=== PATIENT | male | born 1975 | race African-American/Black ===

== ENCOUNTER 2018-01-27 12:20 | Emergency (ER) | payer OTHER ==
[~2018-01-27] VITALS: Ht 170.2 cm; Wt 68.5 kg
[2018-01-27 12:33] VITALS: BP 130/86
[2018-01-27] MEDS ORDERED: NKM (12:36)
--- NOTE | 2018-01-27 13:02 | Emergency Room Report ---
History of Present Illness General Chief Complaint: Male Urogenital Problems Source: Patient Present Illness HPI patient is a 42-year-old male with no significant past medical history here complaining of few days of clear penile discharge after sexual encounter. She was not wearing condoms. Eyes dysuria, penile edema, scrotal pain, penile pain. Patient is unsure if his partner is positive for any other sexually transmitted diseases. Denies ulceration. Denies fevers/chills and all other associated symptoms. Patient is sexually active with one female partner.denies flank pain, suprapubic pain, nausea vomiting Allergies: Coded Allergies: No Known Allergies (Unverified , 01/27/18) Patient History Past Medical History: see triage record Past Surgical History: none Reviewed Nursing Documentation: PMH: Agreed; PSxH: Agreed Review of Systems All Other Systems: negative except mentioned in HPI Physical Exam Vital Signs Date Time Temp Pulse Resp B/P (MAP) Pulse Ox O2 Delivery O2 Flow Rate FiO2 01/27/18 12:33 97.9 72 16 130/86 97 Room Air 97.9 Sp02 EP Interpretation: reviewed, normal General Appearance: normal inspection, well appearing, no apparent distress Head: normocephalic Eyes: bilateral eye normal inspection, bilateral eye PERRL ENT: normal ENT inspection, hearing grossly normal Neck: normal inspection, full range of motion, supple Respiratory: normal inspection, no rhonchi, no wheezing Cardiovascular #1: normal inspection, no edema, no murmur Gastrointestinal: normal inspection, soft Rectal: deferred Genitourinary: deferred Musculoskeletal: normal inspection, back normal Neurologic: normal inspection, alert, oriented x3 Psychiatric: normal inspection, judgement/insight normal, memory normal Skin: normal inspection, normal color, no rash Lymphatic: normal inspection, no adenopathy Medical Decision Making PA Attestation all diagnosis and treatment plans are reviewed and discussed with my supervising physician Diagnostic Impression: Primary Impression: Penile discharge, without blood Additional Impression: Screen for STD (sexually transmitted disease) ER Course patient is a 42-year-old male with no significant past medical history here complaining of few days of clear penile discharge after sexual encounter. She was not wearing condoms. Eyes dysuria, penile edema, scrotal pain, penile pain. Patient is unsure if his partner is positive for any other sexually transmitted diseases. Denies ulceration. Denies fevers/chills and all other associated symptoms. Patient is sexually active with one female partner.denies flank pain, suprapubic pain, nausea vomiting Ddx considered but are not limited to penile discharge due to Chlamydia or gonorrhea, UTI Vital signs: are WNL, pt. is afebrile H&PE are most consistent with penile discharge due to Chlamydia gonorrhea ORDERS: Rocephin 250 mg IM, azithromycin 1 g by mouth, ED INTERVENTIONS: None required at this time. DISCHARGE: At this time pt. is stable for d/c to home. Will provide printed patient care instructions, and any necessary prescriptions. Care plan and follow up instructions have been discussed with the patient prior to discharge.follow-up with primary care provider for screening for sexually transmitted diseases. Social encounter with condoms only for the next 7-10 days. Partner treated and tested. Repeat test in 4-6 weeks Last Vital Signs Date Time Temp Pulse Resp B/P (MAP) Pulse Ox O2 Delivery O2 Flow Rate FiO2 01/27/18 12:33 16 130/86 97 Room Air 01/27/18 12:33 97.9 72 97.9 Disposition: HOME, SELF-CARE Condition: Stable Scripts Azithromycin (AZITHROMYCIN) 1 Gm Packet 1 GM ORAL DAILY for 1 Day, #1 PACKET Prov: Edward Quinones 01/27/18 Patient Instructions: Epididymitis, Urethritis, Adult Additional Instructions: and follow-up with sexually transmitted diseases clinic for extensive workup. Take medication as directed, have partner be tested and treated with proper medication. Encounter without condoms for 7-10 days. Repeat test 4-6 weeks. Edward Quinones Jan 27, 2018 13:02
[2018-01-27] MEDS ORDERED: AZITHROMYCIN1 GM ORAL (13:07)
[2018-01-27] MEDS ORDERED: Lidocaine 1% MPF 10mg/ml 5ml ONE (13:12)
[2018-01-27 13:19] VITALS: BP 130/86
== END 2018-01-27 13:19 | disposition home or self-care (01) ==
LOC: EMR 12:51
DX: Z11.3 Encounter for screening for infections with a predominantly sexual mode of transmission (principal); R36.9 Urethral discharge, unspecified
CPT/HCPCS: 96372; 99283; J0696

== ENCOUNTER 2018-03-30 20:12 | Emergency (ER) | payer OTHER ==
[~2018-03-30] VITALS: Ht 172.7 cm; Wt 72.6 kg
[~2018-03-30 20:12] MED LIST: AZITHROMYCIN1 GM ORAL; NKM
[2018-03-30 20:22] VITALS: BP 138/86
[2018-03-30] MEDS ORDERED: FLAGYL500 MG ORAL (20:48)
--- NOTE | 2018-03-30 20:57 | Emergency Room Report ---
History of Present Illness General Chief Complaint: General Complaint Source: Patient Present Illness HPI Patient 43-year-old male presented after a reported STI exposure. The patient stated he had intercourse with a woman who was diagnosed with Trichomonas. He reports having increased. Patient denied discharge. He denies any fever. He denied having any ulcers or testicle swelling. He had not been vomiting. Allergies: Coded Allergies: No Known Allergies (Unverified , 01/27/18) Patient History Past Medical History: see triage record Reviewed Nursing Documentation: PMH: Agreed; PSxH: Agreed Nursing Documentation-PMH Past Medical History: No Stated History Review of Systems All Other Systems: negative except mentioned in HPI Physical Exam Vital Signs Date Time Temp Pulse Resp B/P (MAP) Pulse Ox O2 Delivery O2 Flow Rate FiO2 03/30/18 20:15 97.9 78 20 138/86 98 Room Air General Appearance: well appearing, no apparent distress, alert, GCS 15 Head: normocephalic, atraumatic ENT: hearing grossly normal, normal voice Neck: full range of motion, supple Respiratory: no respiratory distress, speaking full sentences Gastrointestinal: normal inspection Genitourinary: deferred Musculoskeletal: normal inspection, back normal, no calf tenderness Neurologic: normal inspection, alert, oriented x3, normal gait Psychiatric: mood/affect normal Skin: no rash Medical Decision Making Diagnostic Impression: Primary Impression: Exposure to STD ER Course Patient presented for increased urethral discharge as well as exposure to STI. The patient be empirically treated for a urethritis. Patient was advised to have outpatient STD testing. Patient is advised not to drink alcohol taking antibiotics.The patient is advised to follow up with primary care doctor in 1- 2 days. Patient is advised to return if any worsening condition or if any changes in status that are concerning. This report is dictated with [employer] intern software which may occasionally lead to discrepancies related to use of this software. Last Vital Signs Date Time Temp Pulse Resp B/P (MAP) Pulse Ox O2 Delivery O2 Flow Rate FiO2 03/30/18 20:22 97.9 78 20 138/86 98 Room Air Status: improved Disposition: HOME, SELF-CARE Condition: Stable Scripts Metronidazole* (FLAGYL*) 500 Mg Tablet 500 MG ORAL BID, #14 TAB 0 Refills Prov: Brody Hannah MD 03/30/18 Referrals: [facility],REFERRING (PCP) Patient Instructions: Urethritis, Adult Additional Instructions: Follow up with your doctor for further STI testing. Return if any concerns. Brody Hannah MD Mar 30, 2018 20:57
[2018-03-30 21:00] VITALS: BP 137/74
[2018-03-30] MEDS ORDERED: metroNIDAZOLE 500mg tab ORAL ONE (21:00)
[2018-03-30] MEDS ORDERED: Lidocaine 1% MPF 10mg/ml 5ml INJ ONE (21:00)
[2018-03-30 21:03] VITALS: BP 138/86
[2018-03-30 21:30] LABS: APPEARANCE,URINE CLEAR; BILIRUBIN, URINE NEGATIVE (NEGATIVE); GLUCOSE, URINE (UA) NEGATIVE (NEGATIVE); KETONES,URINE NEGATIVE (NEGATIVE); LEUKOCYTE ESTERASE ,URINE 1+ (NEGATIVE); NITRITE,URINE NEGATIVE (NEGATIVE); PH,URINE 6.5 (4.5-8.0); PROTEIN,URINE NEGATIVE (NEGATIVE); UROBILINOGEN,URINE 4 MG/DL (0.0-1.0)
[2018-03-30 21:33] LABS: COLOR,URINE YELLOW
== END 2018-03-30 21:04 | disposition home or self-care (01) ==
LOC: EMR 20:47
DX: Z20.2 Contact with and (suspected) exposure to infections with a predominantly sexual mode of transmission (principal)
CPT/HCPCS: 81003; 96372; 99283; J0696

== ENCOUNTER 2019-05-12 10:59 | Emergency (ER) | payer SELFPAY ==
[~2019-05-12] VITALS: Ht 175.3 cm; Wt 72.6 kg
[~2019-05-12 10:59] MED LIST changes: +FLAGYL500 MG ORAL
[2019-05-12 11:34] VITALS: BP 117/90
[2019-05-12] MEDS ORDERED: metroNIDAZOLE 500mg tab ORAL ONE (12:15)
--- NOTE | 2019-05-12 12:50 | Emergency Room Report ---
History of Present Illness General Chief Complaint: Male Urogenital Problems Source: Patient Present Illness HPI 44-year-old male with no symptom past medical history here requesting to be tested and treated for trichomoniasis. Patient reports that his sexual partner was positive for trichomoniasis, patient has been having penile discharge which is clear in nature. Denies urinary frequency and urgency. Denies penile ulceration, fever and chills, abdominal pain, nausea vomiting, suprapubic pain. Has not taken medication for symptom relief. Patient does not want to be prophylactically treated for chlamydia and gonorrhea however is interested in knowing the list of STD clinics that he can go to be tested first. Allergies: Coded Allergies: No Known Allergies (Unverified , 01/27/18) Patient History Past Medical History: see triage record Past Surgical History: unable to obtain Pertinent Family History: none Immunizations: UTD Reviewed Nursing Documentation: PMH: Agreed; PSxH: Agreed Nursing Documentation-PMH Past Medical History: No Stated History Review of Systems All Other Systems: negative except mentioned in HPI Physical Exam Vital Signs Date Time Temp Pulse Resp B/P (MAP) Pulse Ox O2 Delivery O2 Flow Rate FiO2 05/12/19 11:01 98.6 77 18 140/97 (111) 99 Room Air Sp02 EP Interpretation: reviewed, normal General Appearance: no apparent distress, alert, GCS 15, non-toxic Head: normocephalic, atraumatic Eyes: bilateral eye normal inspection, bilateral eye PERRL ENT: hearing grossly normal, normal pharynx, no angioedema, normal voice Neck: full range of motion, supple/symm/no masses Respiratory: chest non-tender, lungs clear, normal breath sounds, no rhonchi, no wheezing, speaking full sentences Cardiovascular #1: regular rate, rhythm, no edema Gastrointestinal: non tender, soft Rectal: deferred Genitourinary: no CVA tenderness Musculoskeletal: back normal, digits/nails normal Neurologic: alert, motor strength/tone normal, oriented x3, sensory intact, responsive, speech normal Psychiatric: judgement/insight normal, memory normal, mood/affect normal, no suicidal/homicidal ideation Skin: no rash Lymphatic: no adenopathy Medical Decision Making PA Attestation All my diagnosis and treatment plans were reviewed ad discussed with my supervising physician Dr. Walton Diagnostic Impression: Primary Impression: Exposure to trichomonas Additional Impression: Penile discharge ER Course 44-year-old male with no symptom past medical history here requesting to be tested and treated for trichomoniasis. Patient reports that his sexual partner was positive for trichomoniasis, patient has been having penile discharge which is clear in nature. Denies urinary frequency and urgency. Denies penile ulceration, fever and chills, abdominal pain, nausea vomiting, suprapubic pain. Has not taken medication for symptom relief. Patient does not want to be prophylactically treated for chlamydia and gonorrhea however is interested in knowing the list of STD clinics that he can go to be tested first. Ddx considered but are not limited to: chlamydia, Gonorrhea, syphylis, HIV, herpes 1 or 2, trichomoniasis, UTI Vital signs: are WNL, pt. is afebrile H&PE are most consistent with : Exposure to trichomoniasis ORDERS: UA, urince cx, ED INTERVENTIONS: Metronidazole DISCHARGE: At this time pt. is stable for d/c to home. Will provide printed patient care instructions, and any necessary prescriptions. Care plan and follow up instructions have been discussed with the patient prior to discharge. Patient to follow-up with her primary care provider, also go to STD clinics for further testing. If worsening symptoms return to the emergency room Last Vital Signs Date Time Temp Pulse Resp B/P (MAP) Pulse Ox O2 Delivery O2 Flow Rate FiO2 05/12/19 11:34 98.6 65 19 117/90 99 Room Air Disposition: HOME, SELF-CARE Condition: Stable Referrals: NOT CHOSEN [facility],REFERRING (PCP) Patient Instructions: Trichomoniasis Additional Instructions: Take medication as directed, follow-up with your primary care provider, if worsening symptoms return to the emergency room Edward Quinones May 12, 2019 12:50
[2019-05-12 12:57] LABS: APPEARANCE,URINE CLEAR; BILIRUBIN, URINE NEGATIVE (NEGATIVE); GLUCOSE, URINE (UA) NEGATIVE (NEGATIVE); KETONES,URINE NEGATIVE (NEGATIVE); LEUKOCYTE ESTERASE ,URINE NEGATIVE (NEGATIVE); NITRITE,URINE NEGATIVE (NEGATIVE); PH,URINE 7 (4.5-8.0); PROTEIN,URINE NEGATIVE (NEGATIVE); UROBILINOGEN,URINE 1 MG/DL (0.0-1.0)
[2019-05-12 12:58] LABS: COLOR,URINE YELLOW
[2019-05-12 13:06] VITALS: BP 128/77
== END 2019-05-12 13:06 | disposition home or self-care (01) ==
LOC: EMR 11:44
DX: Z20.2 Contact with and (suspected) exposure to infections with a predominantly sexual mode of transmission (principal); R36.9 Urethral discharge, unspecified
CPT/HCPCS: 81003; 99282